=== PATIENT | male | born 1960 | race Two or more races ===

== ENCOUNTER 2024-10-24 22:35 | Emergency (ER) | payer OTHER, SELFPAY ==
--- NOTE | 2024-10-24 23:06 | EKG_ITS ---
[facility] Test Date: 2024-10-24 Pat Name: JAMES MARR Department: Room: - Gender: Male Rn Discharge: : 1960 Requested By: ED Temporary Provider Order Number: [id number] Reading MD: ED Temporary Provider Measurements Intervals [place] Rate: 58 P: 25 NM: 184 QRS: 39 QRSD: 101 T: 57 QT: 398 QTc: 394 Interpretive Statements SINUS BRADYCARDIA No previous ECG available for comparison /store/S0/[id number]/ecg/[id number].pdf
[2024-10-24 23:10] VITALS: BP 123/82; PULSE 60; RESP 16; TEMP 36.9; O2SAT 97; BMI 24.0
--- NOTE | 2024-10-24 23:49 | XR_ITS ---
Examination: CT brain head without contrast. 2-D sagittal coronal reconstructions Date and time of exam: October 24, 2024, 11:58 PM INDICATIONS: Dizziness episode several days CTDI: vol (mGy):47.6 DLP: (mGycm):929 Technique: Multiple CT axial sections of the brain have been obtained, 5 mm slice thickness. Contrast has not been administered. 2-D sagittal, coronal reconstructions have been obtained Low dose protocols were performed. One or more of the following dose reduction techniques were used; automated exposure control, adjustment of the mA and/or KV according to patient size, use of iterative reconstruction technique. Findings: No significant ventricular enlargement. Intra-axial or extra-axial hemorrhage density is not seen. No mass effect or midline shift Basal cisterns are not remarkable. Fourth ventricle is midline. Cranial vault intact. Impression: Negative for acute hemorrhage, mass effect or midline shift As clinically warranted, if symptoms persist, consider brain MRI follow-up
--- NOTE | 2024-10-24 23:49 | XR_ITS ---
Examination: PA chest single view TECHNIQUE: Upright PA chest single view Date and time: October 25, 2024, 0026 hours INDICATIONS: Chest pain today. FINDINGS: Normal heart size. No pneumonia or pulmonary edema. Mild thoracic dextroscoliosis. IMPRESSION: No active disease.
--- NOTE | 2024-10-24 23:50 | EDRME_ITS ---
Rapid Medical Screening Exam [facility] Arrival date/time: 10/24/24 22:35 64M with no known PMH presents to ED with 1 month of intermittent dizziness and CP that radiates down L arm. Today it got worse where patient had near-syncopal episode. Patient's recently lost his brother. Chief Complaint: General Adult/Misc Complain Vital signs: Vital Signs Temperature 98.4 F 10/24/24 23:10 Pulse Rate 60 10/24/24 23:10 Respiratory Rate 16 10/24/24 23:10 Blood Pressure 123/82 10/24/24 23:10 Pulse Oximetry (%) 97 10/24/24 23:10 Oxygen Delivery Method Room Air 10/24/24 23:10
[2024-10-24 23:58] LABS: Collection Type, Urine Clean Catch; RBC,Urine 0 /hpf (0-3); Squamous Epithelial Cell,Urine 0 /hpf (0-5); WBC,Urine 0 /hpf (0-5)
--- NOTE | 2024-10-25 00:13 | PRELIM_ITS ---
CT scan of the head without intravenous contrast (axial sections with sagittal and coronal reformats) October 24, 2024 2358 hours Clinical history: Dizziness. Comparison: None. Findings: There is no evidence of intracranial hemorrhage, mass effect or midline shift. There are periventricular white matter hypodensities, compatible with chronic small vessel ischemia. There is mild volume loss. The calvarium is unremarkable. The mastoid air cells and the visualized paranasal sinuses are clear. Impression: No evidence of intracranial hemorrhage, mass effect or midline shift. Periventricular chronic small vessel ischemia and volume loss. Aspect score 10. Report Electronically Signed By: Richard Denise 10/25/2024 12:12:57 AM [EST]
[2024-10-25 00:18] LABS: Bacteria,Urine Rare; Bilirubin,Urine Negative (Negative); Blood,Urine Negative (Negative); Clarity,Urine Clear (Clear/Hazy); Color,Urine Colorless (Lt Yel-Yel); Culture Indicated,Urine Not Indicated; Glucose, Urine Negative (Negative); Ketones,Urine Negative (Negative); Leukocyte Esterase,Urine Negative (Negative); Nitrite,Urine Negative (Negative); PH,Urine 7.0 (5.0-7.0); Protein,Urine Negative (Neg - Trace); Specific Gravity,Urine 1.005 (1.001-1.035); Urobilinogen,Urine Negative mg/dL (0.0-1.0)
[2024-10-25 00:29] LABS: Amphetamine/Methamp Scrn,U Negative (Negative); Barbiturate Screen,Urine Negative (Negative); Benzodiazepines Screen,Urine Negative (Negative); Benzoylecgonine Screen, Ur Negative (Negative); Fentanyl Screen,Urine Negative (Negative); Opiate Screen,Urine Negative (Negative); THC Screen,Urine Negative (Negative)
[2024-10-25 00:39] LABS: Basophils # (Auto) 0.0 Thou/mm3 (0.0-0.2); Basophils % (Auto) 0 % (0-2.5); Eosinophils # (Auto) 0.1 Thou/mm3 (0.0-0.5); Eosinophils % (Auto) 3 % (0-10); Hematocrit 43.1 % (41.0-53.0); Hemoglobin 14.9 g/dL (13.5-16.0); Immature Granulocytes Auto 0.01 Thou/mm3 (0.00-0.00); Lymphocytes # (Auto) 1.5 Thou/mm3 (1.0-4.8); Lymphocytes % (Auto) 31 % (10-50); Mean Corpuscular HGB Conc 34.6 g/dl (31.0-37.0); Mean Corpuscular Hemoglobin 32.2 pg (25.0-35.0); Mean Corpuscular Volume 93 fL (80-100); Monocytes # (Auto) 0.4 Thou/mm3 (0.0-0.8); Monocytes % (Auto) 8 % (0-12); Neutrophils # (Auto) 2.8 Thou/mm3 (1.8-7.7); Neutrophils % (Auto) 58 % (37-80); Nucleated Red Blood Cell # 0.00 Thou/mm3 (0.00-0.00); Nucleated Red Blood Cell % 0 /100 WBC (0); Platelet Count 160 Thou/mm3 (140-440); RDW Standard Deviation 41.9 fL (35.1-43.9); Red Blood Count 4.63 Miln/mm3 (4.50-5.90); White Blood Count 4.8 Thou/mm3 (3.8-10.6)
[2024-10-25 00:56] LABS: Alanine Aminotransferase 20 U/L (10-49); Albumin, Serum 4.3 gm/dL (3.4-4.8); Albumin/Globulin Ratio 2.0 (1.2-2.2); Alkaline Phosphatase 84 U/L (46-116); Anion Gap 7 (7-16); Aspartate Amino Transferase 17 U/L (0-34); BUN/Creatinine Ratio 13 Ratio (12-20); Bilirubin,Total 0.6 mg/dL (0.3-1.2); Blood Urea Nitrogen 10 mg/dL (9-23); Calcium 9.7 mg/dL (8.3-10.6); Calcium (Corrected) 9.7 mg/dL (8.5-10.1); Carbon Dioxide 26.0 mMol/L (20.0-31.0); Chloride 108 mMol/L (98-107); Creatinine (Component) 0.8 mg/dL (0.6-1.3); Estimated Creatinine Clearance 77.1 mL/min (>60); Globulin 2.2 gm/dL (2.3-3.5); Glucose 104 mg/dL (74-106); Osmolality,Calculated 280 (275-295); Potassium 4.4 mMol/L (3.4-5.1); Sodium 141 mMol/L (136-145); Total Protein 6.5 gm/dL (5.7-8.2); Troponin I < 0.020 ng/mL (0.0-0.045); eGFR > 60 See Note
--- NOTE | 2024-10-25 01:19 | PD.EDADULT ---
ED General RME/HPI General Chief complaint: General Adult/Misc Complain Stated complaint: DIZZINESS Arrival date/time: 10/24/24 22:35 RME / HPI RME / HPI narrative: 10/24/24 22:35 64M with no known PMH presents to ED with 1 month of intermittent dizziness and CP that radiates down L arm. Today it got worse where patient had near-syncopal episode. Patient's recently lost his brother. Dr. Ibarra?s Main ED Evaluation: 64yo male with no significant past medical history presents to the ED for multiple complaints. Patient endorses his brother recently and has since been having intermittent dizziness, left-sided chest pain that worsens with movement, and having periodic episodes of generalized weakness. Patient denies any difficulty ambulating. Denies any shortness of breath or any other associated symptoms. He does not take any daily medications. NKDA. Related Data Allergies Allergy/AdvReac Type Severity Reaction Status Date / Time No Known Allergies Allergy Verified 10/24/24 22:37 Review of Systems Review of Systems Systems Reviewed: All systems reviewed, normal except as documented Past Medical History Social History SMOKING STATUS: Never smoker ED Exam Narrative Physical exam: Generally patient is alert oriented x 3 and in no obvious distress, heart regular rate and rhythm, lungs clear to auscultation equal bilaterally, abdomen soft bowel sounds present nondistended nontender, extremities show no edema, chest shows no tenderness to palpation Course Course Course Narrative: CXR is ordered for determining the etiology of chest pain. Quality Measures none Orders Category Date Time Status EKG (ED ONLY) *Do not use* NOW Care 10/24/24 23:[address] head/brain wo con Stat Exams 10/24/24 23:49 Ordered EKG (ED Only) Stat Exams 10/24/24 23:06 Draft XR chest 1V portable Stat Exams 10/24/24 23:49 Taken CBC Stat Lab 10/24/24 23:50 Completed Comprehensive Metabolic Panel Stat Lab 10/24/24 23:50 Completed Drug Screen,Urine Stat Lab 10/24/24 23:54 Completed Troponin I Stat Lab 10/24/24 23:50 Completed Urinalysis, C/S if Indicated Stat Lab 10/24/24 23:54 Completed Vital Signs Vital signs: Vital Signs Temperature 98.4 F 10/24/24 23:10 Pulse Rate 60 10/24/24 23:10 Respiratory Rate 16 10/24/24 23:10 Blood Pressure 123/82 10/24/24 23:10 Pulse Oximetry (%) 97 10/24/24 23:10 Oxygen Delivery Method Room Air 10/24/24 23:10 Discharge Plan Plan Patient Disposition: HOME (Self Care) Prescriptions/Referrals Referrals: Durga Klein MD [Primary Care Provider] - In 1 week Problem List Clinical Impression: Grieving Patient/Caregiver Discharge Instructions Education Materials: ED Grief Reaction Additional Instructions: Workup tonight was unremarkable. You may follow-up with your doctor for further treatment and evaluation. Print Language: Andorran Stand Alone Forms: Sushma Award Info., Patient Portal Info Letter MDM Narrative MDM hospital course: Scribe Attestation: 10/25/24 - Derik, Miladys Campbell am scribing for and in the presence of Dr. Ibarra. Differential diagnosis: Stroke, musculoskeletal pain, grieving reaction, acute coronary syndrome Interpreted all labs. EKG shows sinus bradycardia at a rate of 58 without ischemic change or ectopy. Chest x-ray is normal. Troponin was not elevated. Patient is not anemic. There is normal liver and kidney function. Patient most likely is suffering from a grieving reaction. Patient is stable for discharge to follow-up with primary care for further treatment and evaluation. Clinical Information Provided by patient Medical Records Reviewed [facility] (Per chart review, patient has no previous ED visits or admissions to this facility.) Labs/Rad/Tests considered, not Ordered None Chronic Illness/Social Conditions which may negatively complicate care or outcome(s)-explain: None or not applicable Lab Interpretation Labs: interpreted by ms Imaging Imaging interpretation: interpreted by ms Radiology reports / interpretation(s): Telerad Preliminary Report Draft Patient: JAMES MARR [facility]. Record#: [id number] Birthdate: 1960 Age/Sex: 64 / M Location: [facility] Attending Dr: Ordering Physician: Date of Service: Procedure(s): Accession Number(s): cc: ~ CT scan of the head without intravenous contrast (axial sections with sagittal and coronal reformats) October 24, 2024 2358 hours Clinical history: Dizziness. Comparison: None. Findings: There is no evidence of intracranial hemorrhage, mass effect or midline shift. There are periventricular white matter hypodensities, compatible with chronic small vessel ischemia. There is mild volume loss. The calvarium is unremarkable. The mastoid air cells and the visualized paranasal sinuses are clear. Impression: No evidence of intracranial hemorrhage, mass effect or midline shift. Periventricular chronic small vessel ischemia and volume loss. Aspect score 10. Report Electronically Signed By: Richard Denise 10/25/2024 12:12:57 AM [EST Medication Administration(s) see above, if any Diagnosis Differential diagnosis: See MDM narrative. Most likely dx, and/or detailed dx discussion: see clinical impression above Dispositon Disposition: Discharge Home
== END 2024-10-25 02:04 | disposition home or self-care (01) ==
PROVIDERS: Physician Assistant; Emergency Provider Emergency Medicine; PCP Surgery
DX: R42 Dizziness and giddiness (principal); I67.82 Cerebral ischemia; R07.9 Chest pain, unspecified; R00.1 Bradycardia, unspecified
CPT/HCPCS: 36415; 70450; 71045; 80053; 80307; 81001; 84484; 85025; 93005; 99283